=== PATIENT | female | born 1970 | race African-American/Black ===

== ENCOUNTER 2019-11-15 12:25 | Observation (INO) | payer SELFPAY ==
[2019-11-15] MEDS ORDERED: METOCLOPRAMIDE HCL ORAL SOLN 10 MG/10 ML UDCUP PO ONE (13:07)
[2019-11-15] MEDS ORDERED: MAG HYDROX/AL HYDROX/SIMETH SUSP 30 ML UDCUP PO ONE (13:07)
[2019-11-15] MEDS ORDERED: LIDOCAINE 2% VISCOUS SOLN 20 ML UDCUP PO ONE (13:07)
--- NOTE | 2019-11-15 13:07 | ER Document Report ---
ED Medical Screen (RME) - General Chief Complaint: Abdominal Pain Stated Complaint: ABDOMINAL PAIN Time Seen by Provider: 11/15/19 13:01 Mode of Arrival: Ambulatory Information source: Patient Notes: This 49-year-old morbidly obese female presents emergency department with epigastric pain that started this morning upon waking. She reports she is vomited twice. Epigastric area tender to palpate. Denies past medical history of reflux. Denies fever diarrhea. Reports she is only been able to drink water this morning. I have greeted and performed a rapid initial assessment of this patient. A comprehensive ED assessment and evaluation of the patient, analysis of test results and completion of the medical decision making process will be conducted by additional ED providers. TRAVEL OUTSIDE OF THE [place] IN LAST 30 DAYS: No - Related Data Allergies/Adverse Reactions: codeine [Codeine] Allergy (Intermediate, Verified 10/05/12 15:19) vomitting banana [Banana] Allergy (Mild, Verified 10/05/12 15:19) Hives Penicillins Allergy (Unknown, Verified 10/05/12 15:19) Past Medical History Past Surgical History: Reports: Hx Hysterectomy - Immunizations Hx Diphtheria, Pertussis, Tetanus Vaccination: Yes
[2019-11-15] MEDS ORDERED: HYDROMORPHONE HCL INJ/PF 2 MG/ML AMPULE IM ONE (16:36)
--- NOTE | 2019-11-15 16:39 | ER Document Report ---
ED GI/ - General Chief Complaint: Abdominal Pain Stated Complaint: ABDOMINAL PAIN Time Seen by Provider: 11/15/19 13:01 Mode of Arrival: Ambulatory Notes: Patient presents complaining of upper abdominal pain that started this morning. Patient states she is had vomiting x2 episodes today that were not associated with nausea. Patient states that her abdominal pain did improve after she vomited. Patient denies any fever or cough. Patient does complain of some urinary frequency only at night but this is been going on chronically for several months. Patient denies any back tenderness. TRAVEL OUTSIDE OF THE [place] IN LAST 30 DAYS: No - HPI Patient complains to provider of: Abdominal pain, Vomiting Onset: This morning Timing/Duration: Persistent Quality of pain: Sharp Pain Level: 4 Location: Epigastric, RUQ Vaginal bleeding (Compared to normal period): None Associated symptoms: Urinary frequency, Vomiting. denies: Dysuria, Fever, Nausea, Urinary hesitancy, Urinary retention, Urinary urgency Exacerbated by: Denies Relieved by: Denies Similar symptoms previously: No Recently seen / treated by doctor: No - Related Data Allergies/Adverse Reactions: codeine [Codeine] Allergy (Intermediate, Verified 11/15/19 13:07) vomitting banana [Banana] Allergy (Mild, Verified 11/15/19 13:07) Hives Penicillins Allergy (Unknown, Verified 11/15/19 13:07) Home Medications: none Past Medical History - General Information source: Patient - Social History Smoking Status: Current Every Day Smoker Chew tobacco use (# tins/day): No Frequency of alcohol use: None Drug Abuse: None Occupation: Dispatcher [employer] Family History: Reviewed & Not Pertinent Patient has suicidal ideation: No Patient has homicidal ideation: No - Medical History Medical History: Negative Past Surgical History: Reports: Hx Hysterectomy - Immunizations Hx Diphtheria, Pertussis, Tetanus Vaccination: Yes Review of Systems - Review of Systems Constitutional: No symptoms reported. denies: Fever EENT: No symptoms reported Cardiovascular: No symptoms reported. denies: Chest pain Respiratory: No symptoms reported. denies: Cough, Short of breath Gastrointestinal: Abdominal pain, Vomiting. denies: Diarrhea, Nausea Genitourinary: Frequency. denies: Dysuria, Flank pain Female Genitourinary: No symptoms reported Musculoskeletal: No symptoms reported. denies: Back pain Skin: No symptoms reported Hematologic/Lymphatic: No symptoms reported Neurological/Psychological: No symptoms reported Physical Exam - Vital signs Vitals: Temp Pulse Resp BP Pulse Ox 98.6 F 76 16 152/89 H 98 11/15/19 13:10 11/15/19 13:10 11/15/19 13:10 11/15/19 13:10 11/15/19 13:10 - General General appearance: Appears well, Alert In distress: None - HEENT Head: Normocephalic, Atraumatic Eyes: Normal Conjunctiva: Normal Nasal: Normal Mouth/Lips: Normal Neck: Normal, Supple. No: Lymphadenopathy - Respiratory Respiratory status: No respiratory distress Chest status: Nontender Breath sounds: Normal. No: Rales, Rhonchi, Stridor, Wheezing Chest palpation: Normal - Cardiovascular Rhythm: Regular Heart sounds: S1 appreciated, S2 appreciated Murmur: No - Abdominal Inspection: Morbidly Obese Distension: No distension Bowel sounds: Normal Tenderness: Tender - Epigastric, right upper quadrant, Guarding - Back Back: Normal, Nontender. No: CVA tenderness - Extremities General upper extremity: Normal inspection, Nontender, Normal ROM General lower extremity: Normal inspection, Nontender, Normal ROM - Neurological Neuro grossly intact: Yes Cognition: Normal Mell Coma Scale Eye Opening: Spontaneous Mell Coma Scale Verbal: Oriented [place] Coma Scale Motor: Obeys Commands [place] Coma Scale Total: 15 - Psychological Associated symptoms: Normal affect, Normal mood - Skin Skin Temperature: Warm Skin Moisture: Dry Skin Color: Normal Course - Re-evaluation Re-evalutation: 11/15/19 19:[address] Argueta who agrees to come and evaluate patient in the ER. 11/15/19 19:53 Dr. Argueta evaluated patient and plans to admit her at this time. States that patient can be on a clear liquid diet at this time. - Vital Signs Vital signs: Temp Pulse Resp BP Pulse Ox 98.6 F 76 16 152/89 H 98 11/15/19 13:10 11/15/19 13:10 11/15/19 13:10 11/15/19 13:10 11/15/19 13:10 - Laboratory Result Diagrams: 11/15/19 16:40 11/15/19 16:40 Laboratory results interpreted by me: 11/15/19 11/15/19 11/15/19 16:40 16:40 17:39 WBC 11.0 H MCV 75 L MCH 25.6 L RDW 16.2 H Sodium 136.3 L Carbon Dioxide 21 L Urine Ketones TRACE H Urine Blood LARGE H Labs- Entire Visit 11/15/19 11/15/19 11/15/19 16:40 16:40 17:39 WBC 11.0 H RBC 4.90 Hgb 12.5 Hct 36.8 MCV 75 L MCH 25.6 L MCHC 34.1 RDW 16.2 H Plt Count 288 Lymph % (Auto) 29.5 [place] % (Auto) 5.9 Eos % (Auto) 1.0 Baso % (Auto) 0.2 Absolute Neuts (auto) 7.0 Absolute Lymphs (auto) 3.2 Absolute Monos (auto) 0.6 Absolute Eos (auto) 0.1 Absolute Basos (auto) 0.0 Seg Neutrophils % 63.4 Sodium 136.3 L Potassium 4.4 Chloride 106 Carbon Dioxide 21 L Anion Gap 9 BUN 15 Creatinine 0.84 Est GFR ( Amer) > 60 Est GFR (MDRD) Non-Af > 60 Glucose 91 Calcium 9.4 Total Bilirubin 0.5 Direct Bilirubin 0.2 Neonat Total Bilirubin Not Reportable Neonat Direct Bilirubin Not Reportable Neonat Indirect Bili Not Reportable AST 18 ALT 13 Alkaline Phosphatase 66 Total Protein 7.3 Albumin 4.0 Lipase 151.1 Urine Color YELLOW Urine Appearance CLEAR Urine pH 6.0 Ur Specific [place] 1.016 Urine Protein NEGATIVE Urine Glucose (UA) NEGATIVE Urine Ketones TRACE H Urine Blood LARGE H Urine Nitrite NEGATIVE Urine Bilirubin NEGATIVE Urine Urobilinogen NEGATIVE Ur Leukocyte Esterase NEGATIVE Urine RBC (Auto) 62 Squamous Epi Cells Auto <1 Urine Mucus (Auto) RARE Urine Ascorbic Acid NEGATIVE - Diagnostic Test Radiology reviewed: Reports reviewed Discharge - Discharge Clinical Impression: Abdominal pain Qualifiers: Abdominal location: right upper quadrant Qualified Code(s): R10.11 - Right upper quadrant pain Condition: Stable Disposition: ADMITTED OBSERVATION Admitting Provider: Surgicalist Unit Admitted: Medical Floor
[2019-11-15 17:12] LABS: ABSOLUTE EOSINOPHILS # (AUTO) 0.1 10^3/uL (0.0-0.6); ABSOLUTE LYMPHOCYTES (AUTO) 3.2 10^3/uL (0.5-4.7); ABSOLUTE MONOCYTES (AUTO) 0.6 10^3/uL (0.1-1.4); BASOPHILS % (AUTO) 0.2 % (0-2); HEMATOCRIT 36.8 % (36.0-47.0); HEMOGLOBIN 12.5 g/dL (12.0-15.5); LYMPHOCYTES % (AUTO) 29.5 % (13-45); MEAN CORPUSCULAR HEMOGLOBIN 25.6 pg (27.0-33.4); MEAN CORPUSCULAR HGB CONC 34.1 g/dL (32.0-36.0); MEAN CORPUSCULAR VOLUME 75 fl (80-97); MONOCYTES % (AUTO) 5.9 % (3-13); PLATELET COUNT 288 10^3/uL (150-450); RED CELL DISTRIBUTION WIDTH 16.2 % (11.5-14.0); SEGMENTED NEUTROPHILS % (AUTO) 63.4 % (42-78); TOTAL CELLS COUNTED % (AUTO) 100 %
[2019-11-15 17:28] LABS: ALKALINE PHOSPHATASE 66 U/L (38-126); ANION GAP 9 (5-19); ASPARTATE AMINO TRANSFERASE 18 U/L (14-36); BILIRUBIN,DIRECT 0.2 mg/dL (0.0-0.4); BILIRUBIN,TOTAL 0.5 mg/dL (0.2-1.3); BLOOD UREA NITROGEN 15 mg/dL (7-20); CALCIUM 9.4 mg/dL (8.4-10.2); CARBON DIOXIDE 21 mmol/L (22-30); CHLORIDE 106 mmol/L (98-107); GLUCOSE 91 mg/dL (75-110); POTASSIUM 4.4 mmol/L (3.6-5.0); TOTAL PROTEIN 7.3 g/dL (6.3-8.2)
[2019-11-15 18:03] LABS: APPEARANCE,URINE CLEAR; BILIRUBIN,URINE NEGATIVE (NEGATIVE); COLOR,URINE YELLOW; GLUCOSE, URINE NEGATIVE (NEGATIVE); KETONES,URINE TRACE mg/dL (NEGATIVE); LEUKOCYTE ESTERASE,URINE NEGATIVE (NEGATIVE); NITRITE,URINE NEGATIVE (NEGATIVE); PROTEIN,URINE NEGATIVE (NEGATIVE); URINE SPECIFIC GRAVITY 1.016; UROBILINOGEN,URINE NEGATIVE mg/dL (<2.0)
--- NOTE | 2019-11-15 18:19 | RADIOLOGY REPORT (SQ) ---
EXAM DESCRIPTION: U/S ABDOMEN LIMITED W/O DOP COMPLETED DATE/TIME: 11/15/2019 6:08 pm REASON FOR STUDY: epig, RUQ pain COMPARISON: 02/24/2012 TECHNIQUE: Dynamic and static grayscale images acquired of the abdomen and recorded on PACS. Additio nal selected color Doppler and spectral images recorded. LIMITATIONS: None. FINDINGS: PANCREAS: No masses. No ductal dilatation. The tail of the pancreas is obscured by gas. LIVER: No masses. Echotexture normal. LIVER VASCULATURE: Normal directional flow of the main portal vein and hepatic veins. GALLBLADDER: Small gallstones are present. There is no wall thickening or pericholecystic fluid. ULTRASOUND-DETECTED AYALA'S SIGN: Negative. INTRAHEPATIC DUCTS AND COMMON DUCT: Common bile duct is borderline at 7.3 mm. No significant intrahe patic ductal dilatation. INFERIOR VENA CAVA: Not imaged. AORTA: No aneurysm. RIGHT KIDNEY: Normal size, 10.8 cm. Normal echogenicity. No solid or suspicious masses. No hydroneph rosis. No calcifications. PERITONEAL AND RIGHT PLEURAL SPACE: No ascites or effusions. OTHER: No other significant findings. IMPRESSION: Cholelithiasis with no evidence of cholecystitis. Borderline common bile duct. Correla te for biliary obstruction. TECHNICAL DOCUMENTATION: JOB ID: [id number] [employer]- All Rights Reserved Reading location - IP/workstation name: [email or web address]
[2019-11-15] MEDS ORDERED: ONDANSETRON HCL INJ/PF 4 MG/2 ML SDV IV PRN (19:59)
[2019-11-15] MEDS ORDERED: ACETAMINOPHEN 1,000 MG/100 ML RTUPB IV PRN (20:03)
--- NOTE | 2019-11-15 20:19 | PDOC H&P ---
History of Present Illness Patient complains of: RUQ pain History of Present Illness: MARYSE MUSTAAF is a 49 year old female with a 1 day history of sharp, stabbing, severe right upper quadrant pain. She rates her pain is 9 out of 10. The patient reports that she woke up this morning, ate a cough drop, and began having sharp stabbing right upper quadrant pain. She became nauseated and vomited, which helped her pain somewhat. The pain recurred later. The pain is exacerbated by nothing. It is constant. It does not radiate. She has had nothing to eat today. She reports recent diarrhea, approximately 2 to 3 days ago that resolved. She denies any caffeine, nicotine, alcohol, or NSAID use. She did not notice any blood in her vomitus. She denies chest pain, shortness of breath, fatigue, malaise, melena, hematochezia, headache, blurry vision, depression. She was given a GI cocktail in the ER which did not help her pain. Past Medical History Medical History: None Past Surgical History Past Surgical History: Reports: Hysterectomy Social History Smoking Status: Former Smoker Electronic Cigarette use?: No Frequency of Alcohol Use: None Hx Recreational Drug Use: Yes Drugs: Marijuana Hx Prescription Drug Abuse: No Family History Family History: Reviewed & Not Pertinent Parental Family History Reviewed: Yes Children Family History Reviewed: Yes Sibling(s) Family History Reviewed.: Yes Medication/Allergy Home Medications: Clindamycin HCl [Cleocin 150 mg Capsule] 150 mg PO BID #20 capsule 10/05/12 Hydrocodone Bit/Acetaminophen [Vicodin 5-500 mg Tablet] 1 - 2 tab PO ASDIR PRN #15 tablet 10/05/12 No Home Medications 1 10/05/12 Oxycodone HCl/Acetaminophen [Percocet 5-325 mg Tablet] 1 tab PO Q4H PRN #15 tablet 03/21/16 Promethazine HCl [Phenergan 25 mg Tablet] 1 tab PO Q6HP PRN #15 tablet 03/21/16 Allergies/Adverse Reactions: codeine [Codeine] Allergy (Intermediate, Verified 11/15/19 13:07) vomitting banana [Banana] Allergy (Mild, Verified 11/15/19 13:07) Hives Penicillins Allergy (Unknown, Verified 11/15/19 13:07) Review of Systems Constitutional: PRESENT: anorexia, chills, fever(s). ABSENT: fatigue, weakness Eyes: ABSENT: visual disturbances Ears: ABSENT: hearing changes Nose, Mouth, and Throat: ABSENT: sore throat Cardiovascular: ABSENT: chest pain Gastrointestinal: PRESENT: abdominal pain, diarrhea - that resolved 2 days ago, nausea, vomiting. ABSENT: hematemesis, hematochezia, melena Musculoskeletal: ABSENT: back pain Integumentary: ABSENT: pruritus, rash Neurological: ABSENT: confusion, convulsions, dizziness Psychiatric: ABSENT: anxiety Endocrine: ABSENT: cold intolerance, heat intolerance Hematologic/Lymphatic: ABSENT: easy bleeding, easy bruising Physical Exam Vital Signs: Temp Pulse Resp BP Pulse Ox 98.6 F 76 16 152/89 H 98 11/15/19 13:10 11/15/19 13:10 11/15/19 13:10 11/15/19 13:10 11/15/19 13:10 Intake & Output 11/14/19 11/15/19 11/16/19 06:59 06:59 06:59 Weight 167 kg General appearance: PRESENT: morbidly obese Eye exam: PRESENT: EOMI, PERRLA. ABSENT: scleral icterus Mouth exam: PRESENT: moist, neck supple Neck exam: ABSENT: meningismus, tenderness, thyromegaly, tracheal deviation Respiratory exam: PRESENT: chest wall tenderness, unlabored. ABSENT: clear to auscultation gunjan, tachypnea Cardiovascular exam: PRESENT: RRR Pulses: PRESENT: normal radial pulses GI/Abdominal exam: PRESENT: soft, tenderness - RUQ Rectal exam: PRESENT: deferred Extremities exam: ABSENT: clubbing Musculoskeletal exam: ABSENT: deformity Neurological exam: PRESENT: alert, awake, oriented to person, oriented to place, oriented to time, oriented to situation, CN II-XII grossly intact. ABSENT: motor sensory deficit Psychiatric exam: ABSENT: agitated, anxious, depressed Skin exam: ABSENT: cyanosis, erythema, jaundice Results Laboratory Results: 11/15/19 16:40 11/15/19 16:40 11/15/19 11/15/19 11/15/19 16:40 16:40 17:39 WBC 11.0 H RBC 4.90 Hgb 12.5 Hct 36.8 MCV 75 L MCH 25.6 L MCHC 34.1 RDW 16.2 H Plt Count 288 Seg Neutrophils % 63.4 Sodium 136.3 L Potassium 4.4 Chloride 106 Carbon Dioxide 21 L Anion Gap 9 BUN 15 Creatinine 0.84 Est GFR ( Amer) > 60 Glucose 91 Calcium 9.4 Total Bilirubin 0.5 AST 18 Alkaline Phosphatase 66 Total Protein 7.3 Albumin 4.0 Lipase 151.1 Urine Color YELLOW Urine Appearance CLEAR Urine pH 6.0 Ur Specific [place] 1.016 Urine Protein NEGATIVE Urine Glucose (UA) NEGATIVE Urine Ketones TRACE H Urine Blood LARGE H Urine Nitrite NEGATIVE Ur Leukocyte Esterase NEGATIVE Urine RBC (Auto) 62 Impressions: Abdomen Ultrasound 11/15/19 16:29 IMPRESSION: Cholelithiasis with no evidence of cholecystitis. Borderline common bile duct. Correlate for biliary obstruction. Assessment & Plan - Diagnosis (1) Right upper quadrant pain Is this a current diagnosis for this admission?: Yes (2) Nausea & vomiting Qualifiers: Vomiting Intractability: unspecified Is this a current diagnosis for this admission?: Yes - Plan Summary Plan Summary: This is a 49-year-old female with a 1 day history of nausea, vomiting, and right upper quadrant abdominal pain. Her pain is exacerbated by nothing. It is constant and severe. The patient has a right upper quadrant ultrasound showing gallstones and a questionably dilated common bile duct. Her bilirubin, alkaline phosphatase, ALT, AST, amylase, and lipase are all normal. Her white count is mildly elevated at 11. Her symptoms are not typical for biliary colic, however with a questionably dilated common bile duct she may have some hepatobiliary pathology. I recommended the patient be observed overnight, and reevaluated in the morning. The patient had recent diarrhea, and may simply be experiencing a viral gastroenteritis. Also on the differential is gastritis and/or peptic ulcer disease. The patient's emesis is non-bloody. She does not use caffeine, nicotine, NSAIDs, alcohol, or steroids. I will reevaluate the patient tomorrow morning in an effort to make a decision regarding cholecystectomy. Repeat lab work tomorrow. Flat and upright abdominal x-rays now.
--- NOTE | 2019-11-15 21:11 | RADIOLOGY REPORT (SQ) ---
EXAM DESCRIPTION: Abdomen two view study. CLINICAL HISTORY: 49 years Female, flat and upright for abdominal pain COMPARISON: None. FINDINGS: Significant scoliosis. No evidence for subdiaphragmatic free air. Moderate gastric distention. Bowel loops otherwise unremarkable. IMPRESSION: Moderate gastric distention.
[2019-11-15] MEDS: KETOROLAC TROMETHAMINE INJ/PF 30 MG/1 ML SDV IV PRN (21:23)
[2019-11-15] MEDS: NORMAL SALINE 1000 ML 1,000 ML IV PRN (21:24)
[2019-11-15] MEDS: FAMOTIDINE INJ/PF 20 MG/2 ML SDV IV SCH (22:05)
[2019-11-16] MEDS: KETOROLAC TROMETHAMINE INJ/PF 30 MG/1 ML SDV IV PRN ×2 (05:36→20:54)
[2019-11-16 06:39] LABS: ABSOLUTE BASOPHILS # (AUTO) 0.1 10^3/uL (0.0-0.2); ABSOLUTE EOSINOPHILS # (AUTO) 0.2 10^3/uL (0.0-0.6); ABSOLUTE LYMPHOCYTES (AUTO) 3.4 10^3/uL (0.5-4.7); ABSOLUTE MONOCYTES (AUTO) 0.7 10^3/uL (0.1-1.4); ABSOLUTE NEUT (AUTO) 3.8 10^3/uL (1.7-8.2); BASOPHILS % (AUTO) 1.1 % (0-2); EOSINOPHILS % (AUTO) 2.8 % (0-6); HEMATOCRIT 35.6 % (36.0-47.0); HEMOGLOBIN 12.2 g/dL (12.0-15.5); LYMPHOCYTES % (AUTO) 41.4 % (13-45); MEAN CORPUSCULAR HEMOGLOBIN 26.1 pg (27.0-33.4); MEAN CORPUSCULAR HGB CONC 34.3 g/dL (32.0-36.0); MEAN CORPUSCULAR VOLUME 76 fl (80-97); MONOCYTES % (AUTO) 8.4 % (3-13); PLATELET COUNT 274 10^3/uL (150-450); RED BLOOD COUNT 4.68 10^6/uL (3.72-5.28); SEGMENTED NEUTROPHILS % (AUTO) 46.3 % (42-78); TOTAL CELLS COUNTED % (AUTO) 100 %; WHITE BLOOD COUNT 8.2 10^3/uL (4.0-10.5)
[2019-11-16 07:03] LABS: ALBUMIN 3.6 g/dL (3.5-5.0); ALKALINE PHOSPHATASE 60 U/L (38-126); AMYLASE 57 U/L (30-110); ANION GAP 7 (5-19); ASPARTATE AMINO TRANSFERASE 18 U/L (14-36); BILIRUBIN,DIRECT 0.2 mg/dL (0.0-0.4); BILIRUBIN,TOTAL 0.7 mg/dL (0.2-1.3); BLOOD UREA NITROGEN 14 mg/dL (7-20); CALCIUM 9.1 mg/dL (8.4-10.2); CARBON DIOXIDE 27 mmol/L (22-30); CHLORIDE 105 mmol/L (98-107); GLUCOSE 92 mg/dL (75-110); POTASSIUM 3.9 mmol/L (3.6-5.0); TOTAL PROTEIN 6.9 g/dL (6.3-8.2)
[2019-11-16] MEDS: FAMOTIDINE INJ/PF 20 MG/2 ML SDV IV SCH ×2 (09:05→23:20)
[2019-11-16] MEDS: NORMAL SALINE 1000 ML 1,000 ML IV PRN ×2 (09:05→20:22)
--- NOTE | 2019-11-16 09:33 | EKG REPORT ---
SEVERITY:- BORDERLINE ECG - SINUS RHYTHM TALL R WAVE IN V2, CONSIDER RVH OR PMI : Confirmed by: Jose A Parker 16-Nov-2019 09:32:10
--- NOTE | 2019-11-16 10:30 | PDOC PROGRESS REPORT ---
Subjective Progress Note for:: 11/16/19 Subjective:: Still complaining of primarily epigastric pains. Reason For Visit: RUQ PAIN Physical Exam Vital Signs: Temp Pulse Resp BP Pulse Ox 97.5 F 76 18 160/90 H 100 11/16/19 07:28 11/16/19 07:28 11/16/19 07:28 11/16/19 07:28 11/16/19 07:28 Intake & Output 11/15/19 11/16/19 11/17/19 06:59 06:59 06:59 Intake Total 1000 100 Balance 1000 100 Weight 170.2 kg Exam: Abdomen is tender in the epigastric area and mildly tender in the right upper quadrant Results Laboratory Results: 11/16/19 06:05 11/16/19 06:05 11/15/19 11/15/19 11/15/19 16:40 16:40 17:39 WBC 11.0 H RBC 4.90 Hgb 12.5 Hct 36.8 MCV 75 L MCH 25.6 L MCHC 34.1 RDW 16.2 H Plt Count 288 Seg Neutrophils % 63.4 Sodium 136.3 L Potassium 4.4 Chloride 106 Carbon Dioxide 21 L Anion Gap 9 BUN 15 Creatinine 0.84 Est GFR ( Amer) > 60 Glucose 91 Calcium 9.4 Total Bilirubin 0.5 AST 18 Alkaline Phosphatase 66 Total Protein 7.3 Albumin 4.0 Amylase Lipase 151.1 Urine Color YELLOW Urine Appearance CLEAR Urine pH 6.0 Ur Specific [place] 1.016 Urine Protein NEGATIVE Urine Glucose (UA) NEGATIVE Urine Ketones TRACE H Urine Blood LARGE H Urine Nitrite NEGATIVE Ur Leukocyte Esterase NEGATIVE Urine RBC (Auto) 62 11/16/19 11/16/19 06:05 06:05 WBC 8.2 RBC 4.68 Hgb 12.2 Hct 35.6 L MCV 76 L MCH 26.1 L MCHC 34.3 RDW 16.0 H Plt Count 274 Seg Neutrophils % 46.3 Sodium 139.1 Potassium 3.9 Chloride 105 Carbon Dioxide 27 Anion Gap 7 BUN 14 Creatinine 0.90 Est GFR ( Amer) > 60 Glucose 92 Calcium 9.1 Total Bilirubin 0.7 AST 18 Alkaline Phosphatase 60 Total Protein 6.9 Albumin 3.6 Amylase 57 Lipase 24.8 Urine Color Urine Appearance Urine pH Ur Specific [place] Urine Protein Urine Glucose (UA) Urine Ketones Urine Blood Urine Nitrite Ur Leukocyte Esterase Urine RBC (Auto) Impressions: Abdomen X-Ray 11/15/19 00:00 IMPRESSION: Moderate gastric distention. Abdomen Ultrasound 11/15/19 16:29 IMPRESSION: Cholelithiasis with no evidence of cholecystitis. Borderline common bile duct. Correlate for biliary obstruction. Assessment & Plan - Diagnosis (1) Cholelithiasis Is this a current diagnosis for this admission?: Yes - Time Time Spent with patient: 15-24 minutes - Inpatient Certification Medical Necessity: Need For IV Fluids, Need for Pain Control, Need for IV Antibiotics, Risk of Complication if Not Cared For in Hospital - Plan Summary Plan Summary: Ordered a HIDA scan of the abdomen to make sure there is no acute cholecystitis. If this is positive then patient will have lap gunnar tomorrow with cholangiogram. Otherwise patient may need EGD.
--- NOTE | 2019-11-16 11:01 | RADIOLOGY REPORT (SQ) ---
EXAM DESCRIPTION: NM HIDA SCAN COMPLETED DATE/TIME: 11/16/2019 10:43 am REASON FOR STUDY: gallstones COMPARISON: None. RADIONUCLIDE AND DOSE: DOSAGE RADIONUCLIDE: 5.9 millicuries Tc99m Mebrofenin. DOSAGE MORPHINE: Not required. The route of agent administration: Intravenous TECHNIQUE: Serial imaging right upper quadrant up to 60 minutes following injection of radionuclide. Patient imaged AP and Right Lateral. LIMITATIONS: None. FINDINGS: LIVER: Normal visualization without areas of photopenia. INTRA-HEPATIC BILE DUCTS: Temporal visualization normal. No dilatation. COMMON BILE DUCT: Normal without dilatation or delayed visualization. GALLBLADDER: Normal visualization. OTHER: No other significant finding. IMPRESSION: NORMAL STUDY WITHOUT CYSTIC OR COMMON DUCT OBSTRUCTION. TECHNICAL DOCUMENTATION: JOB ID: [id number] [employer]- All Rights Reserved Reading location - IP/workstation name: [email or web address]
[2019-11-16] MEDS ORDERED: DEXTROSE 50%-WATER 25 GM/50 ML DISP.SYRIN IV PRN ×2 (12:43)
[2019-11-16] MEDS ORDERED: GLUCAGON,HUMAN RECOMB 1 MG INJ SUBCUT PRN (12:43)
[2019-11-16] MEDS ORDERED: DEXTROSE 40% GEL 15 GM TUBE PO PRN ×2 (12:43)
[2019-11-16 12:49] LABS: APPEARANCE,URINE SLIGHTLY-CLOUDY; BILIRUBIN,URINE NEGATIVE (NEGATIVE); COLOR,URINE YELLOW; GLUCOSE, URINE NEGATIVE (NEGATIVE); KETONES,URINE TRACE mg/dL (NEGATIVE); LEUKOCYTE ESTERASE,URINE SMALL (NEGATIVE); NITRITE,URINE NEGATIVE (NEGATIVE); PROTEIN,URINE NEGATIVE (NEGATIVE); URINE SPECIFIC GRAVITY 1.021; UROBILINOGEN,URINE NEGATIVE mg/dL (<2.0)
[2019-11-16] MEDS ORDERED: ONDANSETRON HCL INJ/PF 4 MG/2 ML SDV IV PRN (14:30)
[2019-11-17] MEDS: NORMAL SALINE 1000 ML 1,000 ML IV PRN ×2 (05:35→18:24)
[2019-11-17] MEDS: KETOROLAC TROMETHAMINE INJ/PF 30 MG/1 ML SDV IV PRN ×3 (05:39→18:23)
[2019-11-17] MEDS ORDERED: PROPOFOL INJ 200 MG/20 ML VIAL IV ONE (09:23)
--- NOTE | 2019-11-17 10:16 | Operative Report ---
Nonrecallable Operative Report DATE OF SURGERY: 11/17/19 PREOPERATIVE DIAGNOSIS: Abdominal pain POSTOPERATIVE DIAGNOSIS: 1. Mild gastritis. 2. Small sliding hiatal hernia, without evidence of reflux esophagitis. OPERATION: EGD with biopsy SURGEON: MELODIE PATEL ANESTHESIA: LMAC TISSUE REMOVED OR ALTERED: Antral biopsy to rule out H. pylori COMPLICATIONS: None apparent ESTIMATED BLOOD LOSS: Minimal PROCEDURE: Procedure in detail: After informed consent was obtained, the patient was brought to the operating room and laid in the left lateral decubitus position. The endoscope was passed down the oropharynx, down the esophagus, and into the stomach. The stomach was insufflated with air. There was noted to be a very mild amount of gastritis present. There was petechiae in the antrum of the stomach. The scope was pushed through the pylorus, and into the duodenum. The first and second portions of the duodenum were surveyed, and appeared to be normal. The scope was withdrawn back into the body of the stomach, where a retroflexion maneuver was performed. There was a small, sliding hiatal hernia identified. The scope was then straightened. A biopsy was taken in the antrum of the stomach to rule out H. pylori infection. The scope was withdrawn up into the distal esophagus. No evidence of reflux esophagitis was present. The scope was withdrawn up the remainder of the esophagus. The remainder of the esophagus was smooth in contour without masses, lesions, ulcerations, bleeding, or other a bnormality. The scope was removed from the patient's oropharynx, and the procedure was concluded. All sponge, instrument, and needle counts were correct x2. Condition: Stable.
[2019-11-17] MEDS: FAMOTIDINE INJ/PF 20 MG/2 ML SDV IV SCH ×2 (12:30→21:43)
[2019-11-17] MEDS ORDERED: LIDOCAINE 2% INJ-PF (20 MG/ML) 2 ML AMPUL ONE (14:43)
[2019-11-17] MEDS ORDERED: HYDRALAZINE HCL INJ/PF 20 MG/1 ML SDV IV PRN (15:38)
[2019-11-17] MEDS ORDERED: HYDROMORPHONE HCL INJ/PF 2 MG/ML AMPULE IV PRN (15:41)
--- NOTE | 2019-11-17 16:21 | PDOC CONSULTATION ---
Consultation Consult Date: 11/17/19 Attending physician:: KIMBERLY BLEVINS Provider Consulted: NATAN IBARRA JR Consult reason:: pain management, hypertension History of Present Illness Admission Date/PCP: 11/15/19 20:24 History of Present Illness: MARYSE MUSTAFA is a 49 year old female, pleasant, was admitted to the hospital on 11/15/2023 acute abdominal pain, nausea vomiting. Patient was seen in the emergency room and presented as Cholithiasis or cholecystitis. Patient states that on presentation her pain was a 10 out of 10 and even as recently as this morning she said her pain was a 10 out of 10. Currently she describes her pain as being 6 out of 10. Patient has had a work-up and the abdominal ultrasound showed cholelithiasis with no evidence of cholecystitis. She had a HIDA scan done on 11/16/2019, that showed no cystic or common duct obstruction. On admission patient's white count was 11,000 yesterday it is gone down to 8200 hemoglobin is stable at 12.2. Lipase and amylase are normal, electrolytes are normal ,renal functions appear grossly normal Patient has had 2 UAs performed and both showed a large amount of blood. Urine culture however just showed mixed lennox Patient tells me she is never been told in the past that she had high blood pressure and she thinks that her elevated blood pressures are coming from her abdominal pain.. She has been using Toradol for her pain.. Patient's allergy to codeine dates back 20 to 25 years ago when she took Tylenol 3 that caused her to have a rash over her entire body. She denies any hives she denies any difficulty breathing. Since then patient has had both Percocet and Vicodin and the only side effect she has to that is the medications make her nauseated. No rash. Patient denies other comorbidities specifically she denies diabetes, does not smoke cigarettes, does not drink alcohol. 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 Past Medical History Medical History: None Cardiac Medical History: Reports: None Pulmonary Medical History: Reports: Bronchitis Endocrine Medical History: Reports: None GI Medical History: Reports: None Psychiatric Medical History: Reports: None Past Surgical History Past Surgical History: Reports: Hysterectomy Social History Smoking Status: Never Smoker Electronic Cigarette use?: No Frequency of Alcohol Use: None Hx Recreational Drug Use: Yes Drugs: Marijuana Hx Prescription Drug Abuse: No Family History Family History: Reviewed & Not Pertinent Parental Family History Reviewed: No Children Family History Reviewed: No Sibling(s) Family History Reviewed.: No Medication/Allergy Home Medications: No Home Medications 11/15/19 Allergies/Adverse Reactions: codeine [Codeine] Allergy (Intermediate, Verified 11/15/19 13:07) vomitting banana [Banana] Allergy (Mild, Verified 11/15/19 13:07) Hives kiwi Allergy (Mild, Verified 11/16/19 00:51) Hives Penicillins Allergy (Unknown, Verified 11/15/19 13:07) Review of Systems Constitutional: ABSENT: chills, fever(s), headache(s), weight gain, weight loss Cardiovascular: ABSENT: chest pain, dyspnea on exertion, edema, orthropnea, palpitations Respiratory: ABSENT: cough, hemoptysis Gastrointestinal: PRESENT: nausea, vomiting Genitourinary: PRESENT: other - Patient just within the last 24 hours describes "pressure" over her suprapubic region Neurological: ABSENT: abnormal gait, abnormal speech, confusion, dizziness, focal weakness, syncope Psychiatric: ABSENT: anxiety, depression, homidical ideation, suicidal ideation Physical Exam Vital Signs: Temp Pulse Resp BP Pulse Ox 98.3 F 68 18 158/103 H 100 11/17/19 14:27 11/17/19 14:27 11/17/19 14:27 11/17/19 14:27 11/17/19 14:27 Intake & Output 11/16/19 11/17/19 11/18/19 06:59 06:59 06:59 Intake Total 1000 2100 200 Output Total 502 2000 Balance 1000 1598 -1800 Weight 170.2 kg 171.6 kg General appearance: PRESENT: mild distress Respiratory exam: PRESENT: clear to auscultation gunjan. ABSENT: rales, rhonchi, wheezes Cardiovascular exam: PRESENT: RRR. ABSENT: diastolic murmur, rubs, systolic m urmur GI/Abdominal exam: PRESENT: diminished bowel sounds, tenderness - Epigastric region, right upper quadrant, also to a lesser degree umbilicus Neurological exam: PRESENT: alert, awake, oriented to person, oriented to place, oriented to time, oriented to situation, CN II-XII grossly intact. ABSENT: motor sensory deficit Psychiatric exam: PRESENT: appropriate affect, normal mood. ABSENT: homicidal ideation, suicidal ideation Results Laboratory Results: 11/16/19 06:05 11/16/19 06:05 11/16/19 12:20 Clean Catch Midstream Urine Culture - Final Mixed Urogenital Lennox Impressions: Abdomen X-Ray 11/15/19 00:00 IMPRESSION: Moderate gastric distention. Abdomen Ultrasound 11/15/19 16:29 IMPRESSION: Cholelithiasis with no evidence of cholecystitis. Borderline common bile duct. Correlate for biliary obstruction. Hepatobiliary Scan Nuclear Medicine 11/16/19 00:00 IMPRESSION: NORMAL STUDY WITHOUT CYSTIC OR COMMON DUCT OBSTRUCTION. Assessment and Plan - Diagnosis (1) Hematuria Is this a current diagnosis for this admission?: Yes (2) Abdominal pain Qualifiers: Abdominal location: right upper quadrant Qualified Code(s): R10.11 - Right upper quadrant pain Is this a current diagnosis for this admission?: Yes (3) Cholelithiasis Is this a current diagnosis for this admission?: Yes (4) Nausea & vomiting Qualifiers: Vomiting Intractability: unspecified Is this a current diagnosis for this admission?: Yes (5) Right upper quadrant pain Is this a current diagnosis for this admission?: Yes - Plan Summary Summary: 11/17/2019 At this point I have ordered Dilaudid 1 mg IV every 4 hours as needed pain, Apresoline 10 mg IV every 4 hours as needed blood pressure parameters. Also because of her hematuria , just under the remote chance that this could be a kidney stone I have ordered a CT of the abdomen and pelvis without contrast. I do think her hypertension is secondary to her pain, however if this does not improve once the pain is controlled, will reconsider starting oral antihypertensives. Will follow patient with you. - Time Time Spent with patient: 35 or more minutes
[2019-11-17] MEDS ORDERED: MORPHINE SULFATE 10 MG/ML INJ IV PRN (21:35)
[2019-11-17] MEDS ORDERED: PROMETHAZINE HCL INJ 25 MG/1 ML VIAL IV PRN (21:36)
--- NOTE | 2019-11-17 21:57 | RADIOLOGY REPORT (SQ) ---
EXAM DESCRIPTION: [facility]: CT ABDOMEN PELVIS WITH IV CONTRAST CLINICAL HISTORY: 49 years Female; R/O kidney stone TECHNIQUE: CT of the abdomen and pelvis using intravenous contrast. All CT scans at this facility use dose modulation, iterative reconstruction, and/or weight based dosing when appropriate to reduce radiation dose to as low as reasonably achievable. COMPARISON: None. FINDINGS: Abdomen: Stomach is nondistended, with disc material, likely oral contrast. Liver:No focal lesions. No intrahepatic ductal distention. Gallbladder:Nondistended Pancreas:Within normal limits Spleen:Within normal limits Right kidney:No hydronephrosis. No focal lesion. Left kidney:No hydronephrosis. No focal lesion. There are no obvious renal or ureteral calculi, although the presence of contrast does reduce sensitivity for detection of calculi. Adrenal glands:Within normal limits Vascular structures:Within normal limits Pelvis: Small bowel:No significant distention. Some oral contrast material is seen in distal small bowel segments. Appendix:Within normal limits Colon:No distention or acute pericolonic edema. No free intraperitoneal fluid or air. Bones: There is a mild rotoscoliosis of the thoracolumbar spine, with degenerative facet arthropathy. No acute bone findings. Bladder: Unremarkable. No pelvic mass or adenopathy. IMPRESSION: 1. No acute findings 2. No hydronephrosis
--- NOTE | 2019-11-17 22:53 | PDOC PROGRESS REPORT ---
Subjective Progress Note for:: 11/17/19 Subjective:: still with epigastric pains Had upper endoscopy done by Dr. Argueta today which showed some gastritis. Reason For Visit: RUQ PAIN Physical Exam Vital Signs: Temp Pulse Resp BP Pulse Ox 98.4 F 79 18 176/98 H 98 11/17/19 20:20 11/17/19 20:20 11/17/19 20:20 11/17/19 20:20 11/17/19 20:20 Intake & Output 11/16/19 11/17/19 11/18/19 06:59 06:59 06:59 Intake Total 1000 2100 1200 Output Total 502 2710 Balance 1000 1598 -1510 Weight 170.2 kg 171.6 kg Exam: Abdomen is soft with mild epigastric tenderness. Results Laboratory Results: 11/16/19 06:05 11/16/19 06:05 11/16/19 12:20 Clean Catch Midstream Urine Culture - Final Mixed Urogenital Myriam Impressions: Abdomen X-Ray 11/15/19 00:00 IMPRESSION: Moderate gastric distention. Abdomen Ultrasound 11/15/19 16:29 IMPRESSION: Cholelithiasis with no evidence of cholecystitis. Borderline common bile duct. Correlate for biliary obstruction. Hepatobiliary Scan Nuclear Medicine 11/16/19 00:00 IMPRESSION: NORMAL STUDY WITHOUT CYSTIC OR COMMON DUCT OBSTRUCTION. Abdomen/Pelvis CT 11/17/19 00:00 IMPRESSION: 1. No acute findings 2. No hydronephrosis Assessment & Plan - Diagnosis (1) Cholelithiasis Is this a current diagnosis for this admission?: Yes - Time Time Spent with patient: 15-24 minutes - Inpatient Certification Medical Necessity: Need for Pain Control, Need for IV Antibiotics, Need for S urgery - Plan Summary Plan Summary: 89-year-old female with epigastric and upper quadrant pains. She had ultrasound which showed gallstones and dilated gallbladder. Subsequent HIDA scan showed no evidence of acute cholecystitis with the normal filling up of the gallbladder. Today because of her hypertension hospitalist was consulted and noted blood in the urine. A CT scan of the abdomen was not done to rule out any kidney stones or any other abnormality other than the gallstones and it was negative except for the gallstones. Patient is scheduled for laparoscopic cholecystectomy tomorrow with intraoperative cholangiogram with Dr. Castillo.
[2019-11-18] MEDS: NORMAL SALINE 1000 ML 1,000 ML IV PRN (03:47)
[2019-11-18] MEDS ORDERED: FENTANYL CITRATE INJ/PF 250 MCG/5 ML AMPULE ONE (08:00)
[2019-11-18] MEDS ORDERED: HYDROMORPHONE HCL INJ/PF 2 MG/ML AMPULE ONE (08:01)
[2019-11-18] MEDS ORDERED: PROPOFOL INJ 200 MG/20 ML VIAL IV ONE (08:01)
[2019-11-18] MEDS ORDERED: MIDAZOLAM 2 MG/2 ML INJ ONE (08:01)
[2019-11-18] MEDS ORDERED: BUPIVACAINE HCL 0.25 % INJ/PF (2.5 MG/1 ML) 30 ML VIAL ONE (08:21)
[2019-11-18] MEDS ORDERED: CLINDAMYCIN 900 MG/D5W RTU 900 MG/50 ML RTUPB IV ONE (08:57)
[2019-11-18] MEDS ORDERED: LABETALOL HCL INJ 20 MG/4 ML DISP.SYRIN IV ONE (09:38)
[2019-11-18] MEDS ORDERED: FENTANYL CITRATE INJ/PF 100 MCG/2 ML AMPUL IV PRN ×3 (09:50)
[2019-11-18] MEDS ORDERED: PROMETHAZINE HCL INJ 25 MG/1 ML VIAL IV PRN ×2 (09:50)
[2019-11-18] MEDS ORDERED: MEPERIDINE HCL/PF INJ 25 MG/1 ML DISP.SYRIN IV PRN (09:50)
[2019-11-18] MEDS ORDERED: DIPHENHYDRAMINE HCL 50 MG/ML VIAL IV PRN (09:50)
--- NOTE | 2019-11-18 10:35 | Operative Report ---
Nonrecallable Operative Report DATE OF SURGERY: 11/18/19 PREOPERATIVE DIAGNOSIS: cholelilthiasis POSTOPERATIVE DIAGNOSIS: cholelithiasis OPERATION: laparoscopic cholecystectomy with cholangiograms SURGEON: YAN HERNANDEZ ANESTHESIA: GA TISSUE REMOVED OR ALTERED: gallbladder COMPLICATIONS: none ESTIMATED BLOOD LOSS: 25cc INTRAOPERATIVE FINDINGS: see dictation PROCEDURE: After obtaining informed consent, the patient was taken to the operating room. General Anesthesia was induced; the arms were extended, and the abdomen was exposed, and prepped and draped in a sterile fashion. Instrumentation was set up for laparoscopic cholecystectomy. Surgical plan and surgical timeout were conducted. A vertical incision was made above the umbilicus, and a verres needle was inserted uneventfully into the peritoneal cavity. Pneumoperitoneum was established. The verres needle was removed and a 10 mm trocar was inserted and a millimeter laparoscope was inserted. Visualization of the peritoneal cavity confirmed safe uneventful entry. Under direct visualization 3 additional 5 mm ports were established, one in the subxiphoid position and second in the subcostal position. Visualization of the hepatobiliary anatomy revealed no anatomic variations. A grasper was placed on the fundus of the gallbladder and the gallbladder is elevated over the right surface of the liver; a second grasper was used to grasp the infundibulum of the gallbladder. The neck of the gallbladder and junction with the cystic duct was dissected out. The Cystic artery was in its usual location medial and cephalad to the cystic duct. The cystic artery was surrounded with a right angle clamp, clipped twice proximally and divided with laparoscopic scissors. We now opened the triangle of Calot by dividing the peritoneal reflection on both the medial and lateral sides of the cystic duct infundibular junction. The critical view was obtained. We now milked the cystic duct of any possible stones, we then made a cystolithotomy and performed intraoperative cholangiogram which showed no evidence of stones or common bile duct with good flow to the duodenum and both right and left hepatic ducts were visualized. We then clipped the cystic duct approximately 2 times once distally and divided with scissors. The gallbladder was now removed from the undersurface of the liver using hook cautery dissection. Graspers were repositioned and the gallbladder was removed uneventfully from the abdominal cavity through the super umbilical port site incision. The specimen was examined, then passed off to pathology for permanent analysis. We returned to the peritoneal cavity check for bleeding, and evidence of bile leak, and there was none. We Confirmed satisfactory placement of clips on cystic duct and cystic artery were secured . At this point we felt the operation was complete. The subcutaneous tissue was then anesthetized with quarter percent Marcaine Sponge and needle counts are correct. All ports removed under direct visualization pneumoperitoneum evacuated, and 5 mm port wounds closed with 3-0 Vicryl suture, benzoin and Steri-Strips. The patient was extubated, and taken to the recovery room in stable condition.
--- NOTE | 2019-11-18 10:49 | PDOC DISCHARGE SUMMARY ---
General - Admit/Disc Date/PCP Admission Date/Primary Care Provider: 11/15/19 20:24 Discharge Date: 11/18/19 - Discharge Diagnosis Final Diagnosis: symptomatic cholelithiasis - Assessment Summary: Patient was admitted on 11/15/2019 with epigastric abdominal pain she had an extensive work-up including ultrasound which showed cholelithiasis She had an extensive work-up for epigastric pain including a CT scan of her abdomen ultrasound HIDA scan and upper endoscopy all which are essentially negative except for some small hiatal hernia. On ultrasound she did have cholelithiasis and for that reason because of the nausea epigastric and right upper quadrant pain a laparoscopic cholecystectomy was accomplished. Of note there was also a dilated bile duct noted on her ultrasound although her liver function studies were normal therefore a intraoperative cholangiogram was obtained during her cholecystectomy which showed no evidence of any common bile duct stones. She is just undergone a uncomplicated laparoscopic cholecystectomy and will be discharged home postop.. She did have some hypertension during her hospital course and she was seen by the medical team who suggested a follow-up with her primary doctor in a week after discharge for recheck of her blood pressure. She will also be given an appointment in surgical clinic in 5 to 7 days post laparoscopic cholecystectomy. - Additional Information Resuscitation Status: Full Code Discharge Diet: As Tolerated Discharge Activity: No Lifting Over 10 Pounds - pt will need a f/u appint in 7- 10 days. Home Medications: No Home Medications 11/15/19 History of Present Illiness History of Present Illness: MARYSE MUSTAFA is a 49 year old female Physical Exam Vital Signs: Temp Pulse Resp BP Pulse Ox 97.5 F 85 16 171/101 H 100 11/18/19 10:18 11/18/19 10:18 11/18/19 10:18 11/18/19 10:18 11/18/19 10:18 Intake & Output 11/17/19 11/18/19 11/19/19 06:59 06:59 06:59 Intake Total 2100 2200 Output Total 502 2710 Balance 1598 -510 Weight 171.6 kg Results Laboratory Results: WBC 8.2 10^3/uL (4.0-10.5) 11/16/19 06:05 RBC 4.68 10^6/uL (3.72-5.28) 11/16/19 06:05 Hgb 12.2 g/dL (12.0-15.5) 11/16/19 06:05 Hct 35.6 % (36.0-47.0) L 11/16/19 06:05 MCV 76 fl (80-97) L 11/16/19 06:05 MCH 26.1 pg (27.0-33.4) L 11/16/19 06:05 MCHC 34.3 g/dL (32.0-36.0) 11/16/19 06:05 RDW 16.0 % (11.5-14.0) H 11/16/19 06:05 Plt Count 274 10^3/uL (150-450) 11/16/19 06:05 Lymph % (Auto) 41.4 % (13-45) 11/16/19 06:05 Isabella % (Auto) 8.4 % (3-13) 11/16/19 06:05 Eos % (Auto) 2.8 % (0-6) 11/16/19 06:05 Baso % (Auto) 1.1 % (0-2) 11/16/19 06:05 Absolute Neuts (auto) 3.8 10^3/uL (1.7-8.2) 11/16/19 06:05 Absolute Lymphs (auto) 3.4 10^3/uL (0.5-4.7) 11/16/19 06:05 Absolute Monos (auto) 0.7 10^3/uL (0.1-1.4) 11/16/19 06:05 Absolute Eos (auto) 0.2 10^3/uL (0.0-0.6) 11/16/19 06:05 Absolute Basos (auto) 0.1 10^3/uL (0.0-0.2) 11/16/19 06:05 Seg Neutrophils % 46.3 % (42-78) 11/16/19 06:05 Sodium 139.1 mmol/L (137-145) 11/16/19 06:05 Potassium 3.9 mmol/L (3.6-5.0) 11/16/19 06:05 Chloride 105 mmol/L (98-107) 11/16/19 06:05 Carbon Dioxide 27 mmol/L (22-30) 11/16/19 06:05 Anion Gap 7 (5-19) 11/16/19 06:05 BUN 14 mg/dL (7-20) 11/16/19 06:05 Creatinine 0.90 mg/dL (0.52-1.25) 11/16/19 06:05 Est GFR ( Amer) > 60 (>60) 11/16/19 06:05 Est GFR (MDRD) Non-Af > 60 (>60) 11/16/19 06:05 Glucose 92 mg/dL (75-110) 11/16/19 06:05 Calcium 9.1 mg/dL (8.4-10.2) 11/16/19 06:05 Total Bilirubin 0.7 mg/dL (0.2-1.3) 11/16/19 06:05 Direct Bilirubin 0.2 mg/dL (0.0-0.4) 11/16/19 06:05 Neonat Total Bilirubin Not Reportable 11/16/19 06:05 Neonat Direct Bilirubin Not Reportable 11/16/19 06:05 Neonat Indirect Bili Not Reportable 11/16/19 06:05 AST 18 U/L (14-36) 11/16/19 06:05 ALT 13 U/L (<35) 11/16/19 06:05 Alkaline Phosphatase 60 U/L (38-126) 11/16/19 06:05 Total Protein 6.9 g/dL (6.3-8.2) 11/16/19 06:05 Albumin 3.6 g/dL (3.5-5.0) 11/16/19 06:05 Amylase 57 U/L (30-110) 11/16/19 06:05 Lipase 24.8 U/L (23-300) 11/16/19 06:05 Urine Color YELLOW 11/16/19 12:20 Urine Appearance SLIGHTLY-CLOUDY 11/16/19 12:20 Urine pH 6.0 (5.0-9.0) 11/16/19 12:20 Ur Specific [place] 1.021 11/16/19 12:20 Urine Protein NEGATIVE mg/dL (NEGATIVE) 11/16/19 12:20 Urine Glucose (UA) NEGATIVE mg/dL (NEGATIVE) 11/16/19 12:20 Urine Ketones TRACE mg/dL (NEGATIVE) H 11/16/19 12:20 Urine Blood LARGE (NEGATIVE) H 11/16/19 12:20 Urine Nitrite NEGATIVE (NEGATIVE) 11/16/19 12:20 Urine Bilirubin NEGATIVE (NEGATIVE) 11/16/19 12:20 Urine Urobilinogen NEGATIVE mg/dL (<2.0) 11/16/19 12:20 Ur Leukocyte Esterase SMALL (NEGATIVE) H 11/16/19 12:20 Urine WBC (Auto) 4 /HPF 11/16/19 12:20 Urine RBC (Auto) 49 /HPF 11/16/19 12:20 Squamous Epi Cells Auto 5 /HPF 11/16/19 12:20 Urine Mucus (Auto) RARE /LPF 11/16/19 12:20 Urine Ascorbic Acid NEGATIVE (NEGATIVE) 11/16/19 12:20 Impressions: Abdomen X-Ray 11/15/19 00:00 IMPRESSION: Moderate gastric distention. Abdomen Ultrasound 11/15/19 16:29 IMPRESSION: Cholelithiasis with no evidence of cholecystitis. Borderline common bile duct. Correlate for biliary obstruction. Hepatobiliary Scan Nuclear Medicine 11/16/19 00:00 IMPRESSION: NORMAL STUDY WITHOUT CYSTIC OR COMMON DUCT OBSTRUCTION. Abdomen/Pelvis CT 11/17/19 00:00 IMPRESSION: 1. No acute findings 2. No hydronephrosis
[2019-11-18] MEDS ORDERED: ACETAMINOPHEN 1,000 MG/100 ML RTUPB IV ONE (10:57)
[2019-11-18] MEDS ORDERED: FENTANYL CITRATE INJ/PF 100 MCG/2 ML AMPUL ONE (10:57)
--- NOTE | 2019-11-18 11:45 | RADIOLOGY REPORT (SQ) ---
EXAM DESCRIPTION: CHOLANGIOGRAM OPERATIVE COMPLETED DATE/TIME: 11/18/2019 10:35 am REASON FOR STUDY: Cholecystectomy Lap w/ cholangiogram COMPARISON: None. FLUOROSCOPY TIME: 0.5 minutes 7 images saved to PACS. TECHNIQUE: Intra-operative images acquired during surgical procedure to evaluate progress. NUMBER OF IMAGES: 7 LIMITATIONS: None. FINDINGS: Intraoperative cholangiography without unexpected findings. Please correlate with operati ve notes. IMPRESSION: IMAGE(S) OBTAINED DURING PROCEDURE. COMMENT: Quality ID [id number]: Final reports for procedures using fluoroscopy that document radiation exp osure indices, or exposure time and number of fluorographic images (if radiation exposure indices are not available) Please consult full operative report of the attending physician for description of the procedure. TECHNICAL DOCUMENTATION: JOB ID: [id number] [employer]- All Rights Reserved Reading location - IP/workstation name: [email or web address]
[2019-11-18] MEDS ORDERED: SUCCINYLCHOLINE CHLORIDE INJ 200 MG/10 ML VIAL ONE (12:00)
[2019-11-18] MEDS ORDERED: DEXAMETHASONE SOD PHOSPHATE INJ 4 MG/1 ML VIAL ONE (12:00)
[2019-11-18] MEDS ORDERED: GLYCOPYRROLATE 1 MG/5 ML VIAL ONE (12:00)
[2019-11-18] MEDS ORDERED: NEOSTIGMINE METHYLSULFATE 10 MG/10 ML VIAL ONE (12:00)
[2019-11-18] MEDS ORDERED: ROCURONIUM BROMIDE INJ 50 MG/5 ML VIAL IV ONE (12:00)
[2019-11-18] MEDS ORDERED: ONDANSETRON HCL INJ/PF 4 MG/2 ML SDV ONE (12:00)
[2019-11-18] MEDS: FAMOTIDINE INJ/PF 20 MG/2 ML SDV IV SCH (12:49)
[2019-11-18] MEDS: HYDRALAZINE HCL INJ/PF 20 MG/1 ML SDV IV PRN ×2 (12:54→16:00)
[2019-11-18] MEDS: KETOROLAC TROMETHAMINE INJ/PF 30 MG/1 ML SDV IV PRN (13:00)
--- NOTE | 2019-11-18 15:13 | Progress Note ---
Provider Note Provider Note: 11/18/2019 Patient seen briefly this afternoon for her hypertension. Patient was given prescription for Chlorthalidone 25 mg #30. [facility] for [facility] work and further prescriptions. Nurse was present in the room during the discussion.
[2019-11-18 16:37] VITALS: BP 156/98
[2019-11-18] MEDS ORDERED: HYDRALAZINE HCL INJ/PF 20 MG/1 ML SDV IV ONE (17:00)
== END 2019-11-18 17:55 | disposition home or self-care (01) ==
LOC: ER 12:25 → EH 20:24 → 2N 11-16 00:07
PROVIDERS: ADMIT Surgery; ATTEND Surgery
DX: K80.10 Calculus of gallbladder with chronic cholecystitis without obstruction (principal); K44.9 Diaphragmatic hernia without obstruction or gangrene; K29.50 Unspecified chronic gastritis without bleeding; I10 Essential (primary) hypertension; R31.9 Hematuria, unspecified; R35.0 Frequency of micturition; E66.01 Morbid (severe) obesity due to excess calories; Z88.5 Allergy status to narcotic agent; Z90.710 Acquired absence of both cervix and uterus; Z87.891 Personal history of nicotine dependence
CPT/HCPCS: 93005; 99285; 96374; 43239; 36415 ×2; 87086; 82150; 83690 ×2; 85025 ×2; 80053 ×2; 81001 ×2; 88304 ×2; 88305 ×2; 74019; 74300; 76705; 78226; 74177; 93010; 00731; 00790; 47563; G0378 ×4; Q9967; A9537; J2250; J3490 ×6; J1100; J3010 ×2; J0360 ×2; J1885 ×4; J2710; J1170 ×2; J0330; J2405 ×3; J7030 ×4; J2704 ×2; S0028 ×3; J0131 ×2; Q9969; 731; 790